=== PATIENT | male | born 1975 | race African-American/Black ===

== ENCOUNTER 2016-05-22 | Outpatient (CLI) | END 2016-05-22 13:02 | disposition short-term general hospital (02) | CPT/HCPCS: A0425; A0429; A0888 ==

== ENCOUNTER 2016-05-24 | Outpatient (CLI) | payer MEDICAID | END 2016-05-24 12:30 | disposition critical access hospital (66) | CPT/HCPCS: A0425; A0429 ==

== ENCOUNTER 2016-05-24 12:50 | Emergency (ER) | payer MEDICAID ==
[2016-05-24] MEDS ORDERED: chlorproMAZINE 25 MG/ML AMP IM ONE (13:16)
== END 2016-05-24 16:02 | disposition home or self-care (01) ==
DX: R06.6 Hiccough (principal); R10.9 Unspecified abdominal pain; R11.0 Nausea

== ENCOUNTER 2016-06-04 15:06 | Outpatient (CLI) | payer MEDICAID | END 2016-06-04 15:07 | disposition home or self-care (01) | DX: R53.83 Other fatigue (principal); I10 Essential (primary) hypertension ==

== ENCOUNTER 2016-07-14 13:53 | Outpatient (CLI) | payer MEDICAID | END 2016-07-14 13:54 | DX: D64.9 Anemia, unspecified (principal); Z83.2 Family history of diseases of the blood and blood-forming organs and certain disorders involving the immune mechanism ==

== ENCOUNTER 2016-11-18 11:50 | Outpatient (CLI) | payer MEDICAID | END 2016-11-18 11:51 | disposition critical access hospital (66) | DX: R11.10 Vomiting, unspecified (principal) | CPT/HCPCS: A0425; A0427 ==

== ENCOUNTER 2016-11-18 12:16 | Emergency (ER) | payer MEDICAID ==
--- NOTE | 2016-11-18 12:21 | ED Physician Documentation ---
PD HPI NVD - Stated complaint Stated Complaint: N/V - Chief complaint Chief Complaint: General - History obtained from History obtained from: Patient - History of Present Illness Timing - onset: Last night (about 3 am) Timing - duration: Hours Timing - details: Abrupt onset (onst of hiccups, nausea, and vomiting during the night, persisting into today.), Still present Associated symptoms: Abdominal pain (some upper abd pain with repetitive vomiting.), Loss of appetite. No: Near syncope / syncope Contributing factors: Alcohol use (occasional, but not in past few days). No: Sick contact, Bad food, Travel, Recent antibiotics Improved by: No: Vomiting Worsened by: Eating Similar symptoms before: Diagnosis (hiccups with best resolution with Thorazine. some reflux at times otherwise, but no regular nausea/vomiting. Last had episode May and seen [place] and then here and improved with thorazine IV. Had normal labs and U/S in May.) Recently seen: Not recently seen Review of Systems Constitutional: denies: Fever, Chills Nose: denies: Rhinorrhea / runny nose, Congestion Throat: denies: Sore throat Cardiac: denies: Chest pain / pressure, Palpitations Respiratory: denies: Cough GI: reports: Nausea, Vomiting. denies: Abdominal Swelling, Constipation, Diarrhea : denies: Dysuria, Frequency Skin: denies: Rash, Lesions Neurologic: denies: Near syncope, Altered mental status, Headache Endocrine: denies: Weight loss PD PAST MEDICAL HISTORY - Past Medical History Cardiovascular: None Respiratory: None Neuro: None Endocrine/Autoimmune: None GI: GERD, Other (episodic hiccups with vomiting) - Past Surgical History Past Surgical History: Yes General: Appendectomy - Present Medications Home Medications: Ambulatory Orders Medication Instructions Recorded Confirmed Omeprazole [PriLOSEC] 20 mg PO DAILY 08/13/15 11/18/16 Famotidine [Pepcid] 20 mg PO ONCE #30 tablet 11/18/16 Promethazine Supp [Phenergan Supp] 25 mg WA Q6H PRN #5 supp 11/18/16 Promethazine [Phenergan] 25 - 50 mg PO Q6H PRN #30 tab 11/18/16 - Allergies Allergies/Adverse Reactions: Allergies Allergy/AdvReac Type Severity Reaction Status Date / Time No Known Drug Allergies Allergy Verified 11/18/16 12:19 - Social History Does the pt smoke?: No Smoking Status: Never smoker Does the pt drink ETOH?: No Does the pt have substance abuse?: Yes PD ED PE NORMAL - Vitals Vital signs reviewed: Yes - General General: Alert and oriented X 3, No acute distress (Having frequent hiccups and episodic forceful dry heaving with minimal output. No noted blood in emesis. ), Well developed/nourished - HEENT HEENT: PERRL (nonicteric), Pharynx benign - Neck Neck: Supple, no meningeal sign, No adenopathy - Cardiac Cardiac: RRR, No murmur - Respiratory Respiratory: Clear bilaterally - Abdomen Abdomen: Normal bowel sounds, Soft, Non distended, No organomegaly, Other (some tenderness in upper abd without guarding. ) - Back Back: No CVA TTP - Derm Derm: Normal color, Warm and dry - Neuro Neuro: Alert and oriented X 3, No motor deficit, Normal speech Results - Vitals Vitals: Oxygen O2 Source Room air - Labs Labs: Laboratory Tests 11/18/16 13:07 Sodium 140 Potassium 3.8 Chloride 106 Carbon Dioxide 22 Anion Gap 12.0 BUN 14 Creatinine 0.9 Estimated GFR (MDRD) 114 Glucose 139 H Calcium 9.0 Magnesium 1.7 Total Bilirubin 0.7 AST 25 ALT 18 Alkaline Phosphatase 63 Total Protein 7.2 Albumin 4.2 Globulin 3.0 Albumin/Globulin Ratio 1.4 Lipase 18 L PD MEDICAL DECISION MAKING - ED course Complexity details: re-evaluated patient (improved with meds. Had some epigastric cramping after antiemetics. Hiccups stopped and no vomiting. Prior to discharge did have occasional hiccup at times. ), considered differential, d/ w patient Departure - Departure Disposition: 01 Home, Self Care Clinical Impression: Intractable hiccups Vomiting Qualifiers: Vomiting type: unspecified Vomiting Intractability: non-intractable Nausea presence: with nausea Qualified Code(s): R11.2 - Nausea with vomiting, unspecified Gastritis Qualifiers: Gastritis type: other gastritis Chronicity: acute Gastritis bleeding: without bleeding Qualified Code(s): K29.00 - Acute gastritis without bleeding Condition: Stable Record reviewed to determine appropriate education?: Yes Instructions: ED Gastritis, ED Hiccups Prescriptions: Famotidine [Pepcid] 20 mg PO ONCE #30 tablet Promethazine [Phenergan] 25 - 50 mg PO Q6H PRN #30 tab PRN Reason: Nausea / Vomiting Promethazine Supp [Phenergan Supp] 25 mg WA Q6H PRN #5 supp PRN Reason: Nausea / Vomiting Comments: Small frequent fluids today, minimal bland food. Promethazine tablet or suppository as needed for nausea. Famotidine to reduce stomach acids daily for a month. Recheck if not improved over the next day or two. Discharge Date/Time: 11/18/16 15:06
[2016-11-18] MEDS ORDERED: chlorproMAZINE 25 MG in SODIUM CHLORIDE 0.9% 500 ML IV ONE (12:33)
[2016-11-18] MEDS ORDERED: SODIUM CHLORIDE 0.9% 1,000 ML IV ONE (12:33)
[2016-11-18] MEDS ORDERED: MAG HYDROX/AL HYDROX/SIMETH 30 ML UDC PO STA (12:36)
[2016-11-18] MEDS ORDERED: ONDANSETRON 4 MG/2 ML VIAL IVP STA ×2 (12:36→13:41)
[2016-11-18] MEDS ORDERED: LIDOCAINE VISCOUS 2% 15 ML UDC MM STA (12:36)
[2016-11-18] MEDS ORDERED: MAG HYDROX/AL HYDROX/SIMETH 30 ML UDC ONE (12:39)
[2016-11-18] MEDS ORDERED: LIDOCAINE VISCOUS 2% 15 ML UDC MM ONE (12:39)
[2016-11-18] MEDS ORDERED: ONDANSETRON 4 MG/2 ML VIAL ONE ×2 (12:40→13:44)
[2016-11-18 13:31] LABS: ALBUMIN/GLOBULIN RATIO 1.4 (1.0-2.2); BILIRUBIN,TOTAL 0.7 mg/dL (0.2-1.0); CREATININE 0.9 mg/dL (0.6-1.2); MAGNESIUM 1.7 mg/dL (1.7-2.8); POTASSIUM 3.8 mmol/L (3.5-5.0); TOTAL PROTEIN 7.2 g/dL (6.7-8.2)
[2016-11-18] MEDS ORDERED: FAMOTIDINE 20 MG/50 ML 50 ML IV ONE ×2 (13:41→13:44)
[2016-11-18 14:10] VITALS: BP 156/85
[2016-11-18] MEDS ORDERED: KETOROLAC 60 MG/2 ML VIAL IVP STA (14:33)
[2016-11-18] MEDS ORDERED: HYDROmorphone 1 MG/ML SYRINGE IVP STA (14:33)
[2016-11-18] MEDS ORDERED: HYDROmorphone 1 MG/ML SYRINGE ONE ×2 (14:35→14:41)
[2016-11-18] MEDS ORDERED: KETOROLAC 30 MG/ML VIAL IM STA (14:40)
[2016-11-18] MEDS ORDERED: HYDROmorphone 1 MG/ML SYRINGE IM STA (14:40)
[2016-11-18] MEDS ORDERED: KETOROLAC 30 MG/ML VIAL ONE (14:43)
== END 2016-11-18 15:06 | disposition home or self-care (01) ==
LOC: ED 12:16
DX: R11.2 Nausea with vomiting, unspecified (principal); K29.00 Acute gastritis without bleeding
CPT/HCPCS: 36415; 80053; 83690; 83735; 96372; 96374; 96375; 96376; 99284; A9270; J1170